=== PATIENT | male | born 1950 | race Caucasian/White ===

== ENCOUNTER 2024-02-17 15:14 | Emergency (ER) | payer OTHER ==
[~2024-02-17] VITALS: Ht 177.8 cm; Wt 88.5 kg
[2024-02-17] MEDS ORDERED: AMLODIPINE-OLM1 EAC2 (15:30)
[2024-02-17] MEDS ORDERED: LIPITOR40 M1 PO (15:30)
== END 2024-02-17 18:14 ==
LOC: ER 15:15
DX: S09.8XXA Other specified injuries of head, initial encounter (principal); X58.XXXA Exposure to other specified factors, initial encounter; Y93.89 Activity, other specified; Y92.89 Other specified places as the place of occurrence of the external cause; Y99.8 Other external cause status; I10 Essential (primary) hypertension